=== PATIENT | male | born 1985 ===

== ENCOUNTER 2018-07-06 17:16 | Observation (INO) | payer MEDICAID, OTHER ==
[2018-07-06 18:47] LABS: BASO # 0.02 K/mm3 (0.0-2.0); BASO % 0.1 % (0.0-3.0); EOS # 0.1 (0.0-0.7); EOS % 0.3 % (1.5-5.0); GRAN # 12.38 (1.4-6.5); GRAN % 80.5 % (50.0-68.0); HEMOGLOBIN 17.3 g/dL (14.0-18.0); LYMPH # 1.8 (1.2-3.4); LYMPH % 11.6 % (22.0-35.0); MEAN CELL VOLUME 87.7 fl (80.0-105.0); MEAN CORPUSCULAR HEMOGLOBIN 30.8 pg (25.0-35.0); MEAN CORPUSCULAR HGB CONC 35.2 g/dl (31.0-37.0); MEAN PLATELET VOLUME 10.1 fl (7.0-11.0); MONO # 1.2 (0.1-0.6); MONO % 7.5 % (1.0-6.0); RBC 5.61 10^6/uL (3.5-6.1); RED CELL DISTRIBUTION WIDTH 12.6 % (11.5-14.5); WHITE BLOOD COUNT 15.4 10^3/uL (4.5-11.0)
[2018-07-06 18:50] LABS: ALB/GLOB RATIO 1.3 (1.1-1.8); ALBUMIN 4.9 g/dL (3.0-4.8); ALT/SGPT 33 U/L (7-56); AST/SGOT 32 U/L (17-59); BLOOD UREA NITROGEN 17 mg/dL (7-21); CALCIUM 9.6 mg/dL (8.4-10.5); GFR NON-AFRICAN AMERICAN > 60; LIPASE 38 U/L (23-300)
--- NOTE | 2018-07-06 19:01 | ED PDOC ---
Arrival/HPI <Idalmis Graham PA-C - Last Filed: 07/06/18 21:49> - General Historian: Patient - History of Present Illness Narrative History of Present Illness (Text): 07/06/18 19:08 33 y/o male with no significant PMH presents to the ED c/o vomiting x 3 days. Approximately 3-5 episodes of non-bloody emesis daily directly after PO intake. Associated tactile fever/chills and constipation. Unable to tolerate any PO in three days. Pt states he received the flu shot two months ago. Denies abdominal pain, diarrhea, chest pain, SOB, palpitations, dizziness, headache, vision changes, back pain, neck pain, urinary symptoms, or any other associated symptoms. <Jacqueline Brown - Last Filed: 07/06/18 23:05> - General Chief Complaint: GI Problem Time Seen by Provider: 07/06/18 17:30 Past Medical History - Provider Review Nursing Documentation Reviewed: Yes - Infectious Disease Hx of Infectious Diseases: None - Cardiac Hx Cardiac Disorders: No - Pulmonary Hx Respiratory Disorders: No - Psychiatric Hx Substance Use: No - Anesthesia Hx Anesthesia: No <Jacqueline Brown - Last Filed: 07/06/18 23:05> Family/Social History - Physician Review Nursing Documentation Reviewed: Yes Family/Social History: No Known Family HX Smoking Status: Unknown If Ever Smoked Hx Alcohol Use: No Hx Substance Use: No <Jacqueline Brown - Last Filed: 07/06/18 23:05> Allergies/Home Meds <Idalmis Graham PA-C - Last Filed: 07/06/18 21:49> <Jacqueline Brown - Last Filed: 07/06/18 23:05> Allergies/Adverse Reactions: Allergies No Known Allergies Allergy (Unverified 08/03/13 12:23) Home Medications: Home Meds Medication Instructions Recorded Confirmed No Known Home Med 08/03/13 07/06/18 Review of Systems - Physician Review All systems were reviewed & negative as marked: Yes - Review of Systems Constitutional: Normal. absent: Fatigue, Fevers Eyes: Normal. absent: Vision Changes, Photophobia ENT: Normal. absent: Sore Throat, Sinus Congestion Respiratory: Normal. absent: SOB, Cough, Sputum Cardiovascular: Normal. absent: Chest Pain, Palpitations Gastrointestinal: Constipation, Nausea, Vomiting, Appetite Changes. absent: Abdominal Pain Genitourinary Male: Normal. absent: Dysuria, Frequency, Hematuria Musculoskeletal: Normal. absent: Back Pain, Neck Pain Skin: Normal. absent: Rash Neurological: Normal. absent: Headache, Dizziness, Disequilibrium Endocrine: Normal Hemo/Lymphatic: Normal Psychiatric: Normal <StephanieEmilyJacqueline - Last Filed: 07/06/18 23:05> Physical Exam Vital Signs Temp Pulse Resp BP Pulse Ox 07/06/18 21:00 100 F H 07/06/18 19:30 80 18 125/71 96 07/06/18 18:09 99.4 F 82 18 126/71 95 07/06/18 17:26 98.5 F 90 16 125/77 96 <Idalmis Graham PA-C - Last Filed: 07/06/18 21:49> Vital Signs Reviewed: Yes Vital Signs Temp Pulse Resp BP Pulse Ox 07/06/18 18:09 99.4 F 82 18 126/71 95 07/06/18 17:26 98.5 F 90 16 125/77 96 Temperature: Afebrile Blood Pressure: Normal Pulse: Regular Respiratory Rate: Normal Appearance: Positive for: Well-Appearing, Non-Toxic, Comfortable Pain Distress: None Mental Status: Positive for: Alert and Oriented X 3 - Systems Exam Head: Present: Atraumatic, Normocephalic Pupils: Present: PERRL Extroacular Muscles: Present: EOMI Conjunctiva: Present: Normal Ears: Present: Normal, NORMAL TM Mouth: Present: Moist Mucous Membranes Pharnyx: Present: Normal. No: ERYTHEMA, EXUDATE, TONSILS ENLARGED Nose (External): Present: Atraumatic Nose (Internal): Present: Normal Inspection Neck: Present: Normal Range of Motion. No: Meningeal Signs, MIDLINE TENDERNESS, Paraspinal Tenderness Respiratory/Chest: Present: Clear to Auscultation, Good Air Exchange. No: Respiratory Distress, Accessory Muscle Use Cardiovascular: Present: Regular Rate and Rhythm, Normal S1, S2, Peripheal Pulses Present. No: Murmurs Abdomen: Present: Normal Bowel Sounds. No: Tenderness, Distention, Peritoneal Signs, Rebound, Guarding Back: Present: Normal Inspection. No: CVA Tenderness Upper Extremity: Present: Normal Inspection, Normal ROM, NORMAL PULSES, Neurovascularly Intact, Capillary Refill < 2s. No: Cyanosis, Edema Lower Extremity: Present: Normal Inspection, NORMAL PULSES, Normal ROM, Neurovascularly Intact, Capillary Refill < 2 s. No: Edema Neurological: Present: GCS=15, CN II-XII Intact, Speech Normal, Motor Func Grossly Intact, Normal Sensory Function, Gait Normal Skin: Present: Warm, Dry, Normal Color. No: Rashes Lymphatic: No: Cervical Adenopathy Psychiatric: Present: Alert, Oriented x 3, Normal Insight, Normal Concentration, Normal Affect, Normal Mood <Jacqueline Brown - Last Filed: 07/06/18 23:05> Medical Decision Making ED Course and Treatment: Case endorsed to me from AMADOR Brown at 20:[address] EXAM: CT Abdomen with IV contrast Electronically signed on Jul 06, 2018 8:27:41 PM EST by: Quinn Guadalupe M.D IMPRESSION: 1. Evaluation is limited, especially of bowel, with the admission of oral contrast. 2. The appendix is not visualized with certainty. The cecum appears indistinct. No free pelvic fluid is identified. The proximal descending colon appears to demonstrate a submucosal fat stripe. this is suggestive of a colitis. Orally clinically. 3. Pulmonary bases are well-aerated. The heart is not enlarged. 4. Limited study secondary to lack of oral contrast administration. On reevaluation, patient reports improvement of symptoms, denies any Esteban pain, nausea, diarrhea. On exam, patient remains awake alert and oriented 3 in no acute distress. Neck is supple, abdomen soft and nontender, repeat neuro exam shows no focal findings. Diagnostic results discussed with the patient in great detail. Based on history, exam and diagnostic results plan will be for observation. Cipro IV and Flagyl IV ordered for possible colitis. Case discussed with medical receptionist and with Dr. Krishna Iniguez, who agrees with further observation under the hospitalist service. Patient notified of plan for further observation and feels comfortable with disposition. - Lab Interpretations Lab Results: 07/06/18 18:06 07/06/18 18:06 Lab Results 07/06/18 18:06: Sodium 137, Potassium 4.0, Chloride 101, Carbon Dioxide 26, Anion Gap 15, BUN 17, Creatinine 1.1, Est GFR ( Amer) > 60, Est GFR (Non- Af Amer) > 60, Random Glucose 94, Calcium 9.6, Total Bilirubin 0.9, AST 32, ALT 33, Alkaline Phosphatase 100, Total Protein 8.5 H, Albumin 4.9 H, Globulin 3.6, Albumin/Globulin Ratio 1.3, Lipase 38 07/06/18 18:06: Influenza Typ A,B (EIA) Negative for flu a/b, Grp A Beta Strep Ag Negative 07/06/18 18:06: WBC 15.4 H, RBC 5.61, Hgb 17.3, Hct 49.2, MCV 87.7, MCH 30.8, MCHC 35.2, RDW 12.6, Plt Count 236, MPV 10.1, Gran % 80.5 H, Lymph % (Auto) 11.6 L, [place] % (Auto) 7.5 H, Eos % (Auto) 0.3 L, Baso % (Auto) 0.1, Gran # 12.38 H, Lymph # (Auto) 1.8, [place] # (Auto) 1.2 H, Eos # (Auto) 0.1, Baso # (Auto) 0.02 - RAD Interpretation Radiology Orders: 07/06/18 17:45 CHEST PORTABLE [RAD] Stat 07/06/18 19:12 ABD & PELVIS IV CONTRAST ONLY [CT] Stat - Medication Orders Current Medication Orders: Discontinued Medications Famotidine (Pepcid) 20 mg IVP STAT STA Stop: 07/06/18 19:12 Last Admin: 07/06/18 19:28 Dose: 20 mg IVP Administration Document 07/06/18 19:28 (Rec: 07/06/18 19:30 [id number] Charges for Administration # of IVP Administrations 1 Sodium Chloride (Sodium Chloride 0.9%) 1,000 mls @ 999 mls/hr IV .Q1H1M STA Stop: 07/06/18 20:10 Last Admin: 07/06/18 19:25 Dose: 999 mls/hr eMAR Start Stop Document 07/06/18 19:25 (Rec: 07/06/18 19:31 [id number]) Intravenous Solution Start Date 07/06/18 Start Time 19:25 Ondansetron HCl (Zofran Inj) 4 mg IVP STAT STA Stop: 07/06/18 19:12 Last Admin: 07/06/18 19:29 Dose: 4 mg IVP Administration Document 07/06/18 19:29 RG (Rec: 07/06/18 19:30 RG [id number]) Charges for Administration # of IVP Administrations 1 <Idalmis Graham PA-C - Last Filed: 07/06/18 21:49> ED Course and Treatment: 07/06/18 19:02 Initial Plan: * CBC, CMP * Lipase * CXR * Rapid Flu * CT Abd/Pelvis * IVF * Pepcid * Zofran CBC reveals leukocytosis at 15.4 CMP unremarkable for acute pathology Lipase wnl CXR negative as read by me Flu: negative Strep: negative 19:40 Patient care endorsed to AMADOR Graham. Patient aware of change in provider. Pending CT, urine, and disposition. Vital signs stable at this time. - Lab Interpretations Lab Results: 07/06/18 18:06 07/06/18 18:06 Lab Results 07/06/18 18:06: Sodium 137, Potassium 4.0, Chloride 101, Carbon Dioxide 26, Anion Gap 15, BUN 17, Creatinine 1.1, Est GFR ( Amer) > 60, Est GFR (Non- Af Amer) > 60, Random Glucose 94, Calcium 9.6, Total Bilirubin 0.9, AST 32, ALT 33, Alkaline Phosphatase 100, Total Protein 8.5 H, Albumin 4.9 H, Globulin 3.6, Albumin/Globulin Ratio 1.3, Lipase 38 07/06/18 18:06: WBC 15.4 H, RBC 5.61, Hgb 17.3, Hct 49.2, MCV 87.7, MCH 30.8, MCHC 35.2, RDW 12.6, Plt Count 236, MPV 10.1, Gran % 80.5 H, Lymph % (Auto) 11.6 L, [place] % (Auto) 7.5 H, Eos % (Auto) 0.3 L, Baso % (Auto) 0.1, Gran # 12.38 H, Lymph # (Auto) 1.8, [place] # (Auto) 1.2 H, Eos # (Auto) 0.1, Baso # (Auto) 0.02 I have reviewed the lab results: Yes - RAD Interpretation Narrative RAD Interpretations (Text): 07/06/18 19:07 CXR: No active disease Radiology Orders: 07/06/18 17:45 CHEST PORTABLE [RAD] Stat Logging Truck Driver: ED Physician (Jacqueline Brown PA-C) <Jacqueline Brown - Last Filed: 07/06/18 23:05> - PA / PLANER TAILER / Resident Statement MD/DO has reviewed & agrees with the documentation as recorded. <Idalmis Graham PA-C - Last Filed: 07/06/18 21:49> Disposition/Present on Arrival - Present on Arrival Any Indicators Present on Arrival: No History of DVT/PE: No History of Uncontrolled Diabetes: No Urinary Catheter: No History of Decub. Ulcer: No - Disposition Have Diagnosis and Disposition been Completed?: Yes Disposition Time: 21:45 Patient Plan: Observation <Idalmis Graham PA-C - Last Filed: 07/06/18 21:49> - Present on Arrival History of DVT/PE: No History of Uncontrolled Diabetes: No Urinary Catheter: No History of Decub. Ulcer: No History Surgical Site Infection Following: None <Jacqueline Brown - Last Filed: 07/06/18 23:05> - Disposition Diagnosis: Vomiting, Leukocytosis, Fever Disposition: HOSPITALIZED Patient Problems: Current Active Problems Problem Status Onset Vomiting Acute Leukocytosis Acute Fever Acute Condition: STABLE
[2018-07-06] MEDS ORDERED: Sodium Chloride 0.9% 1,000 ML IV STA (19:10)
[2018-07-06 19:12] LABS: INFLUENZA A B NEGATIVE FOR FLU A/B (NEGATIVE)
[2018-07-06] MEDS ORDERED: Iohexol 350 MG/100 ML VIAL ONE (19:31)
[2018-07-06 21:39] LABS: URINE BILIRUBIN NEGATIVE (NEGATIVE); URINE BLOOD NEGATIVE (NEGATIVE); URINE GLUCOSE (UA) NEGATIVE (NEGATIVE); URINE LEUKOCYTE ESTERASE TRACE Leu/uL (NEGATIVE); URINE PROTEIN 30 mg/dL (<30 mg/dL)
[2018-07-06 21:40] LABS: URINE APPEARANCE CLEAR (CLEAR)
[2018-07-06] MEDS ORDERED: Ciprofloxacin 400mg/200ml D5W 400 MG/200 ML BAG IVPB STA (21:44)
[2018-07-06] MEDS ORDERED: metroNIDAZOLE IV 500 mg/100 ml 500 MG/100 ML BAG IVPB STA (21:44)
[2018-07-06] MEDS ORDERED: Sodium Chloride 0.9% 1,000 ML IV SCH ×2 (22:30→22:45)
--- NOTE | 2018-07-06 22:54 | CP.PCM.HP ---
History of Present Illness - History of Present Illness History of Present Illness: Kade Shepherd DO, PGY1. H&P for Dr amaral service C.C: vomiting 33 y/o male with no significant PMH presents to the ED with 3 days h/o NBNB vomiting, generalized muscle aches, fever and chills. Symptoms started gradually and he only had pizza prior to the onset of symptoms that got worse by the next day. Patient tried to have chicken with soup the next day but was not able to tolerate any food and he vomited. Patient denied any diarrhea, abdominal pain or change in bowel movement, blood per rectum, melena, hematemesis. He denied recent travel or sick contacts. Patient denies CP, palpitations, cough, shortness of breath, headache, dizziness, urinary symptoms. 12points ROS reviewed with pertinent positives as above PMH: denied PSH:appendectomy at age 9 Meds: denied ALL: NKDA SH: denied smoking, alcohol, drug use FH: mother at age 43 of heart disease PMD: none Present on Admission - Present on Admission Any Indicators Present on Admission: No Past Patient History - Infectious Disease Hx of Infectious Diseases: None - Past Social History Smoking Status: Unknown If Ever Smoked - CARDIAC Hx Cardiac Disorders: No - PULMONARY Hx Respiratory Disorders: No - PSYCHIATRIC Hx Substance Use: No - ANESTHESIA Hx Anesthesia: No Meds Allergies/Adverse Reactions: Allergies Allergy/AdvReac Type Severity Reaction Status Date / Time No Known Allergies Allergy Unverified 08/03/13 12:23 Physical Exam - Constitutional Appears: Well, Non-toxic, No Acute Distress - Head Exam Head Exam: ATRAUMATIC, NORMAL INSPECTION, NORMOCEPHALIC - Eye Exam Eye Exam: Conjunctival injection (left eye), EOMI, Normal appearance, PERRL Pupil Exam: NORMAL ACCOMODATION, PERRL - ENT Exam ENT Exam: Mucous Membranes Dry - Neck Exam Neck exam: Positive for: Normal Inspection - Respiratory Exam Respiratory Exam: Clear to Auscultation Bilateral, NORMAL BREATHING PATTERN - Cardiovascular Exam Cardiovascular Exam: REGULAR RHYTHM, +S1, +S2. absent: Gallop, Rubs - GI/Abdominal Exam GI & Abdominal Exam: Normal Bowel Sounds, Soft. absent: Tenderness - Extremities Exam Extremities exam: Positive for: normal capillary refill, normal inspection, pedal pulses present - Back Exam Back exam: NORMAL INSPECTION - Neurological Exam Neurological exam: Alert, CN II-XII Intact, Oriented x3, Reflexes Normal - Psychiatric Exam Psychiatric exam: Normal Affect, Normal Mood - Skin Skin Exam: Dry, Intact, Normal Color, Warm Results - Vital Signs Recent Vital Signs: Last Vital Signs Temp 100 F H 07/06/18 21:00 Pulse 77 07/06/18 22:00 Resp 18 07/06/18 22:00 BP 114/64 07/06/18 22:00 Pulse Ox 96 07/06/18 22:00 - Labs Result Diagrams: 07/06/18 18:06 07/06/18 18:06 Labs: Laboratory Results - last 24 hr 07/06/18 07/06/18 07/06/18 18:06 18:06 18:06 WBC 15.4 H RBC 5.61 Hgb 17.3 Hct 49.2 MCV 87.7 MCH 30.8 MCHC 35.2 RDW 12.6 Plt Count 236 MPV 10.1 Gran % 80.5 H Lymph % (Auto) 11.6 L [place] % (Auto) 7.5 H Eos % (Auto) 0.3 L Baso % (Auto) 0.1 Gran # 12.38 H Lymph # (Auto) 1.8 [place] # (Auto) 1.2 H Eos # (Auto) 0.1 Baso # (Auto) 0.02 Sodium 137 Potassium 4.0 Chloride 101 Carbon Dioxide 26 Anion Gap 15 BUN 17 Creatinine 1.1 Est GFR ( Amer) > 60 Est GFR (Non-Af Amer) > 60 Random Glucose 94 Calcium 9.6 Total Bilirubin 0.9 AST 32 ALT 33 Alkaline Phosphatase 100 Total Protein 8.5 H Albumin 4.9 H Globulin 3.6 Albumin/Globulin Ratio 1.3 Lipase 38 Urine Color Urine Appearance Urine pH Ur Specific [place] Urine Protein Urine Glucose (UA) Urine Ketones Urine Blood Urine Nitrate Urine Bilirubin Urine Urobilinogen Ur Leukocyte Esterase Urine RBC Urine WBC Ur Epithelial Cells Influenza Typ A,B (EIA) Negative for flu a/b Grp A Beta Strep Ag Negative 07/06/18 20:48 WBC RBC Hgb Hct MCV MCH MCHC RDW Plt Count MPV Gran % Lymph % (Auto) [place] % (Auto) Eos % (Auto) Baso % (Auto) Gran # Lymph # (Auto) [place] # (Auto) Eos # (Auto) Baso # (Auto) Sodium Potassium Chloride Carbon Dioxide Anion Gap BUN Creatinine Est GFR ( Amer) Est GFR (Non-Af Amer) Random Glucose Calcium Total Bilirubin AST ALT Alkaline Phosphatase Total Protein Albumin Globulin Albumin/Globulin Ratio Lipase Urine Color maryam Urine Appearance Clear Urine pH 6.0 Ur Specific [place] >= 1.030 Urine Protein 30 H Urine Glucose (UA) Negative Urine Ketones Negative Urine Blood Negative Urine Nitrate Negative Urine Bilirubin Negative Urine Urobilinogen 2.0 H Ur Leukocyte Esterase Trace H Urine RBC 2 - 5 H Urine WBC 5 - 10 H Ur Epithelial Cells 6 - 8 H Influenza Typ A,B (EIA) Grp A Beta Strep Ag Assessment & Plan - Assessment and Plan (Free Text) Assessment: 33 y/o male with no significant PMH presents to the ED with 2 days h/o NBNB vomiting, generalized muscle aches, fever, chills. He was found to be febrile with leukocytosis with bands, CT abd w/IV contrast: submucosal fat stripe in proximal descending colon suggestive of a colitis Plan: Vomiting: -febrile, leukocytosis at 15.4 with bandemia, AST/ALT/lipase normal -CT abd w/IV contrast: submucosal fat stripe in proximal descending colon suggestive of a colitis -CXR no active disease -flu a/b and rapid step negative -continue IVF NS@100 cc/hr -continue abx flagyl, cipro -keep NPO -f/u procal -f/u blood, urine cx h/o premature CAD -mother at age 43 of CAD -patient asymptomatic, no CP, palpitations. Does not have PMD -patient was counseled to f/u with PMD for cardiac workup Prophylaxis: -DVT ppx: SCD -GI ppx: protonix NPO Case reviewed and plan discussed with attending Dr Suly Shepherd, DO, PGY1
[2018-07-07] MEDS: metroNIDAZOLE IV 500 mg/100 ml 500 MG/100 ML BAG IVPB SCH ×3 (05:39→23:05)
[2018-07-07] MEDS: Pantoprazole 40 mg EC Tab PO SCH (05:39)
[2018-07-07] MEDS ORDERED: metroNIDAZOLE IV 500 mg/100 ml 500 MG/100 ML BAG IVPB SCH (06:00)
[2018-07-07 08:43] LABS: BASO # 0.03 K/mm3 (0.0-2.0); BASO % 0.2 % (0.0-3.0); EOS # 0.1 (0.0-0.7); EOS % 0.8 % (1.5-5.0); GRAN # 9.56 (1.4-6.5); GRAN % 76.7 % (50.0-68.0); MEAN CELL VOLUME 89.2 fl (80.0-105.0); MEAN CORPUSCULAR HEMOGLOBIN 29.9 pg (25.0-35.0); MEAN CORPUSCULAR HGB CONC 33.6 g/dl (31.0-37.0); MEAN PLATELET VOLUME 9.7 fl (7.0-11.0); MONO # 0.8 (0.1-0.6); MONO % 6.3 % (1.0-6.0); RBC 5.01 10^6/uL (3.5-6.1); RED CELL DISTRIBUTION WIDTH 12.7 % (11.5-14.5); WHITE BLOOD COUNT 12.5 10^3/uL (4.5-11.0)
--- NOTE | 2018-07-07 08:47 | RAD ---
Date of service: 07/06/2018 HISTORY: r/o PNA COMPARISON: No prior. FINDINGS: LUNGS: No active pulmonary disease. PLEURA: No significant pleural effusion identified, no pneumothorax apparent. CARDIOVASCULAR: No aortic atherosclerotic calcification present. Normal cardiac size. No pulmonary vascular congestion. OSSEOUS STRUCTURES: No significant abnormalities. VISUALIZED UPPER ABDOMEN: Normal. OTHER FINDINGS: None. IMPRESSION: No active disease.
[2018-07-07 09:05] LABS: BLOOD UREA NITROGEN 16 mg/dL (7-21); GFR NON-AFRICAN AMERICAN > 60
[2018-07-07 09:06] LABS: ALB/GLOB RATIO 1.4 (1.1-1.8); ALBUMIN 4.1 g/dL (3.0-4.8); ALT/SGPT 37 U/L (7-56); AST/SGOT 25 U/L (17-59); CALCIUM 8.9 mg/dL (8.4-10.5)
--- NOTE | 2018-07-07 09:28 | CT ---
Date of service: 07/06/2018 PROCEDURE: CT Abdomen and Pelvis with contrast HISTORY: vomiting COMPARISON: None. TECHNIQUE: Contrast dose: 100 mL Omnipaque 350 Radiation dose: Total exam DLP = 556.73 mGy-cm. This CT exam was performed using one or more of the following dose reduction techniques: Automated exposure control, adjustment of the mA and/or kV according to patient size, and/or use of iterative reconstruction technique. FINDINGS: LOWER THORAX: Unremarkable. LIVER: Unremarkable. No gross lesion or ductal dilatation. GALLBLADDER AND BILE DUCTS: Unremarkable. PANCREAS: Unremarkable. No gross lesion or ductal dilatation. SPLEEN: Unremarkable. ADRENALS: Unremarkable. No mass. KIDNEYS AND URETERS: Unremarkable. No hydronephrosis. No solid mass. VASCULATURE: Unremarkable. No aortic aneurysm. No aortic atherosclerotic calcification or mural plaque present. BOWEL: Unremarkable. No obstruction. No gross mural thickening. APPENDIX: No findings to suggest acute appendicitis. PERITONEUM: Small fat containing left inguinal hernia. No free fluid. No free air. LYMPH NODES: Unremarkable. No enlarged lymph nodes. BLADDER: Unremarkable. REPRODUCTIVE: Unremarkable. BONES: No acute fracture. OTHER FINDINGS: None. IMPRESSION: No acute abdominal pelvic pathology.
[2018-07-07] MEDS ORDERED: Ciprofloxacin 400mg/200ml D5W 400 MG/200 ML BAG IVPB SCH ×2 (10:00)
[2018-07-07] MEDS ORDERED: Sodium Chloride 0.9% 1,000 ML IV SCH (16:00)
[2018-07-07] MEDS: Sodium Chloride 0.9% 1,000 ML IV SCH (17:50)
[2018-07-08] MEDS: Sodium Chloride 0.9% 1,000 ML IV SCH (03:48)
[2018-07-08] MEDS: Pantoprazole 40 mg EC Tab PO SCH (05:46)
[2018-07-08] MEDS: metroNIDAZOLE IV 500 mg/100 ml 500 MG/100 ML BAG IVPB SCH (05:46)
[2018-07-08 07:27] LABS: BASO # 0.03 K/mm3 (0.0-2.0); BASO % 0.5 % (0.0-3.0); EOS # 0.2 (0.0-0.7); GRAN % 52.1 % (50.0-68.0); HEMOGLOBIN 14.8 g/dL (14.0-18.0); LYMPH # 2.2 (1.2-3.4); LYMPH % 37.3 % (22.0-35.0); MEAN CELL VOLUME 89.4 fl (80.0-105.0); MEAN CORPUSCULAR HEMOGLOBIN 30.1 pg (25.0-35.0); MEAN CORPUSCULAR HGB CONC 33.7 g/dl (31.0-37.0); MEAN PLATELET VOLUME 9.7 fl (7.0-11.0); MONO # 0.4 (0.1-0.6); MONO % 7.1 % (1.0-6.0); RBC 4.91 10^6/uL (3.5-6.1); RED CELL DISTRIBUTION WIDTH 12.8 % (11.5-14.5); WHITE BLOOD COUNT 5.8 10^3/uL (4.5-11.0)
[2018-07-08 07:42] LABS: ALB/GLOB RATIO 1.3 (1.1-1.8); ALT/SGPT 28 U/L (7-56); AST/SGOT 25 U/L (17-59); BLOOD UREA NITROGEN 16 mg/dL (7-21); CALCIUM 8.8 mg/dL (8.4-10.5); GFR NON-AFRICAN AMERICAN > 60
[2018-07-08 09:33] VITALS: BP 99/61; PULSE 71; RESP 20; TEMP 97.9; O2SAT 96
--- NOTE | 2018-07-08 15:19 | CP.PCM.DIS ---
Provider - Provider Date of Admission: 07/06/18 21:45 Attending physician: Sergo Irwin MD Primary care physician: NO PRIMARY CARE PROVIDER Consults: None Time Spent in preparation of Discharge (in minutes): 45 Diagnosis - Discharge Diagnosis (1) Gastroenteritis Status: Resolved (2) Fever Status: Resolved (3) Leukocytosis Status: Resolved (4) Vomiting Status: Resolved Hospital Course - Lab Results Lab Results: Micro Results 07/06/18 18:06 Throat Group A Strep Throat Culture - Final NO BETA STREP GROUP A ISOLATED. 07/07/18 05:26 Urine,Clean Catch Urine Culture - Final No Growth (<1,000 CFU/ML) 07/07/18 00:00 Blood Blood Culture - Preliminary NO GROWTH AFTER 24 HOURS 07/07/18 00:00 Blood Blood Culture - Preliminary NO GROWTH AFTER 24 HOURS Most Recent Lab Values WBC 5.8 10^3/uL (4.5-11.0) D 07/08/18 07:00 RBC 4.91 10^6/uL (3.5-6.1) 07/08/18 07:00 Hgb 14.8 g/dL (14.0-18.0) 07/08/18 07:00 Hct 43.9 % (42.0-52.0) 07/08/18 07:00 MCV 89.4 fl (80.0-105.0) 07/08/18 07:00 MCH 30.1 pg (25.0-35.0) 07/08/18 07:00 MCHC 33.7 g/dl (31.0-37.0) 07/08/18 07:00 RDW 12.8 % (11.5-14.5) 07/08/18 07:00 Plt Count 212 10^3/uL (120.0-450.0) 07/08/18 07:00 MPV 9.7 fl (7.0-11.0) 07/08/18 07:00 Gran % 52.1 % (50.0-68.0) 07/08/18 07:00 Lymph % (Auto) 37.3 % (22.0-35.0) H 07/08/18 07:00 Hughes % (Auto) 7.1 % (1.0-6.0) H 07/08/18 07:00 Eos % (Auto) 3.0 % (1.5-5.0) 07/08/18 07:00 Baso % (Auto) 0.5 % (0.0-3.0) 07/08/18 07:00 Gran # 3.00 (1.4-6.5) 07/08/18 07:00 Lymph # (Auto) 2.2 (1.2-3.4) 07/08/18 07:00 Hughes # (Auto) 0.4 (0.1-0.6) 07/08/18 07:00 Eos # (Auto) 0.2 (0.0-0.7) 07/08/18 07:00 Baso # (Auto) 0.03 K/mm3 (0.0-2.0) 07/08/18 07:00 Sodium 142 mmol/L (132-148) 07/08/18 07:00 Potassium 4.4 mmol/L (3.6-5.0) 07/08/18 07:00 Chloride 107 mmol/L (98-107) 07/08/18 07:00 Carbon Dioxide 30 mmol/L (21-33) 07/08/18 07:00 Anion Gap 10 (10-20) 07/08/18 07:00 BUN 16 mg/dL (7-21) 07/08/18 07:00 Creatinine 1.1 mg/dl (0.8-1.5) 07/08/18 07:00 Est GFR ( Amer) > 60 07/08/18 07:00 Est GFR (Non-Af Amer) > 60 07/08/18 07:00 Random Glucose 96 mg/dL (70-110) 07/08/18 07:00 Calcium 8.8 mg/dL (8.4-10.5) 07/08/18 07:00 Phosphorus 4.2 mg/dL (2.5-4.5) 07/08/18 07:00 Magnesium 2.6 mg/dL (1.7-2.2) H 07/08/18 07:00 Total Bilirubin 0.4 mg/dL (0.2-1.3) 07/08/18 07:00 AST 25 U/L (17-59) 07/08/18 07:00 ALT 28 U/L (7-56) 07/08/18 07:00 Alkaline Phosphatase 77 U/L (38-126) 07/08/18 07:00 Total Protein 7.0 g/dL (5.8-8.3) 07/08/18 07:00 Albumin 4.0 g/dL (3.0-4.8) 07/08/18 07:00 Globulin 3.0 gm/dL 07/08/18 07:00 Albumin/Globulin Ratio 1.3 (1.1-1.8) 07/08/18 07:00 Lipase 38 U/L (23-300) 07/06/18 18:06 Procalcitonin 0.14 NG/ML (0.19-0.49) L 07/06/18 18:06 Urine Color maryam (YELLOW) 07/06/18 20:48 Urine Appearance Clear (CLEAR) 07/06/18 20:48 Urine pH 6.0 (4.7-8.0) 07/06/18 20:48 Ur Specific [place] >= 1.030 (1.005-1.035) 07/06/18 20:48 Urine Protein 30 mg/dL (<30 mg/dL) H 07/06/18 20:48 Urine Glucose (UA) Negative mg/dL (NEGATIVE) 07/06/18 20:48 Urine Ketones Negative mg/dL (NEGATIVE) 07/06/18 20:48 Urine Blood Negative (NEGATIVE) 07/06/18 20:48 Urine Nitrate Negative (NEGATIVE) 07/06/18 20:48 Urine Bilirubin Negative (NEGATIVE) 07/06/18 20:48 Urine Urobilinogen 2.0 E.U./dL (<1 E.U./dL) H 07/06/18 20:48 Ur Leukocyte Esterase Trace Justin/uL (NEGATIVE) H 07/06/18 20:48 Urine RBC 2 - 5 /hpf (0-2) H 07/06/18 20:48 Urine WBC 5 - 10 /hpf (0-6) H 07/06/18 20:48 Ur Epithelial Cells 6 - 8 /hpf (0-5) H 07/06/18 20:48 Alcohol, Quantitative < 10 mg/dL (0-10) 07/07/18 00:00 Influenza Typ A,B (EIA) Negative for flu a/b (NEGATIVE) 07/06/18 18:06 Grp A Beta Strep Ag Negative (NEGATIVE) 07/06/18 18:06 - Hospital Course Hospital Course: HPI at time of admission: "33 y/o male with no significant PMH presents to the ED with 3 days h/o NBNB vomiting, generalized muscle aches, fever and chills. Symptoms started gradually and he only had pizza prior to the onset of symptoms that got worse by the next day. Patient tried to have chicken with soup the next day but was not able to tolerate any food and he vomited. Patient denied any diarrhea, abdominal pain or change in bowel movement, blood per rectum, melena, hematemesis. He denied recent travel or sick contacts. Patient denies CP, palpitations, cough, shortness of breath, headache, dizziness, urinary symptoms." Hospital Course: Pertinent imaging: CXR 07/06: no active disease CT abd/pelvis 07/06: no acute abdominal pelvic pathology. Pt was admitted for management of abd pain, n/v likely 2/2 viral gastroenteritis. Pt was placed on IVF and advanced back to diet as tolerated. Symptoms improved during admission. Pt was discharged to home in stable condition on 07/08/18. Was given appt to establish care with [facility] on 07/18/17 at 3:00 pm. Instructed to return to the ED if his symptoms worsened. Instructed to avoid sick contacts for the next 10 days and eat well-balanced low residue diet for the next 10 days. Discharge Exam - Head Exam Head Exam: ATRAUMATIC, NORMAL INSPECTION, NORMOCEPHALIC - Eye Exam Eye Exam: EOMI, Normal appearance, PERRL - ENT Exam ENT Exam: Mucous Membranes Moist - Respiratory Exam Respiratory Exam: Clear to PA & Lateral, NORMAL BREATHING PATTERN, UNREMARKABLE - GI/Abdominal Exam GI & Abdominal Exam: Normal Bowel Sounds, Soft, Unremarkable. absent: Distend ed, Guarding, Organomegaly - Extremities Exam Extremities exam: full ROM, normal capillary refill, normal inspection, pedal pulses present - Neurological Exam Neurological exam: Alert, CN II-XII Intact, Normal Gait, Oriented x3, Reflexes Normal - Psychiatric Exam Psychiatric exam: Normal Affect, Normal Mood - Skin Skin Exam: Dry, Intact, Normal Color, Warm Discharge Plan - Follow Up Plan Condition: STABLE Disposition: HOME/ ROUTINE Instructions: Smoking: Not Just Harmful to Your Lungs and Heart, Dangers of Secondhand Smoke, Flu, Adult (DC), Leukocytosis (DC), Leukocytosis (GEN) Additional Instructions: We have a [facility] here at [facility] - you have an [place] ointment at SundayJuly 18 at 3pm to establish care with a primary medical doctor. Please rest and eat a well-balanced low residue diet for the next 10 days. Do your best to avoid being around sick contact for the next 10 days. If symptoms return please go to your nearest emergency department. [facility] PCP,NO [Primary Care Provider] -
== END 2018-07-08 18:19 | disposition home or self-care (01) ==
LOC: ED 17:16 → ERH 21:45 → 5RNO 07-07 01:06
PROVIDERS: ADMIT Internal Medicine; ATTEND Internal Medicine
DX: K52.9 Noninfective gastroenteritis and colitis, unspecified (principal); R50.9 Fever, unspecified
CPT/HCPCS: 36415; 71045; 74177; 80053; 80320; 81001; 83690; 83735; 84100; 84145; 85025; 87040; 87070; 87086; 87430; 87804; 96374; 96375; 99285; G0378; J0744; J2405; J7030; Q9967